=== PATIENT | male | born 1985 | race Caucasian/White ===

== ENCOUNTER 2017-02-15 02:21 | Day surgery (SDC) | payer BC, OTHER ==
[2017-02-15] MEDS ORDERED: PANTOPRAZOLE 40 MG TABLET (FP) PO ONE (02:43)
--- NOTE | 2017-02-15 02:43 | PDOC ---
[id number] No Limitations - History of Present Illness Initial Comments: 02/15/17 03:02 The patient is a 31 year old male with no significant past medical history who presents to the ED for abdominal pain 2 hours prior to arrival. Patient reports he developed pain to the right upper quadrant and epigastric region about 2 hours ago. States his pain is constant and he did not take any pain medications for his pain. Denies nausea, vomiting, or diarrhea. Patient reports his last meal was yesterday evening around 5pm. States he normally gets the same meal from the same restaurant with no difficulties. The patient denies fever, chills, cough, SOB, chest pain, and palpitations. Allergies: NKDA Social History: No alcohol, tobacco, or drug use reported. Past Surgical History: Denies PCP: None reported <Bibiana Cyr - Last Filed: 02/15/17 05:01> - General History Source: Patient <Mynor Guzman - Last Filed: 02/15/17 23:31> - General Chief Complaint: Pain Stated Complaint: ABD PAIN Time Seen by Provider: 02/15/17 02:39 Past History <Bibiana Cyr - Last Filed: 02/15/17 05:01> - Psycho/Social/Smoking Cessation Hx Suicidal Ideation: No Smoking History: Never smoked Have you smoked in the past 12 months: No Information on smoking cessation initiated: No Hx Alcohol Use: No Drug/Substance Use Hx: No <Mynor Guzman - Last Filed: 02/15/17 23:31> - Past Medical History Allergies/Adverse Reactions: Allergies Allergy/AdvReac Type Severity Reaction Status Date / Time No Known Allergies Allergy Verified 02/15/17 02:37 Home Medications: Ambulatory Orders NK [No Known Home Medication] 02/15/17 Review of Systems - Review of Systems Able to Perform ROS?: Yes Comments:: 02/15/17 03:02 CONSTITUTIONAL: Absent: fever, no chills, no fatigue EYES: Absent: visual changes ENT: Absent: ear pain, no sore throat CARDIOVASCULAR: Absent: chest pain, no palpitations RESPIRATORY: Absent: cough, no SOB GI: +pain to the right upper quadrant and epigastric region Absent: no nausea, no vomiting, no constipation, no diarrhea GENITOURINARY: Absent: dysuria, no frequency, no hematuria MUSCULOSKELETAL: Absent: back pain, no arthralgia, no myalgia SKIN: Absent: rash NEURO: Absent: headache <KlarissaBibiana - Last Filed: 02/15/17 05:01> *Physical Exam - Vital Signs Last Vital Signs Temp Pulse Resp BP Pulse Ox 98.7 F 93 H 18 123/71 98 02/15/17 02:35 02/15/17 02:35 02/15/17 02:35 02/15/17 02:35 02/15/17 02:35 - Physical Exam Comments: 02/15/17 03:02 GENERAL: Well-appearing, well-nourished. No apparent distress. HEENT: Normocephalic, atraumatic. PERRL, EOM intact. CARDIOVASCULAR: Normal S1, S2. Regular rate and rhythm. PULMONARY: Clear to auscultation bilaterally. ABDOMEN: Soft, non-distended, non-tender. EXTREMITIES: Normal ROM in all four extremities. No gross deformities. SKIN: Warm, dry. No rash NEUROLOGICAL: No focal neurological deficits. <KlarissaBibiana - Last Filed: 02/15/17 05:01> - Vital Signs Last Vital Signs Temp Pulse Resp BP Pulse Ox 98.7 F 93 H 18 123/71 98 02/15/17 02:35 02/15/17 02:35 02/15/17 02:35 02/15/17 02:35 02/15/17 02:35 <Mynor Guzman - Last Filed: 02/15/17 23:31> Heart Score/ECG Review - ECG Impressions Comment:: 02/15/17 05:01 Sinus tachycardia @105bpm Incomplete RBBB Borderline ECG <AllynpennieBibiana - Last Filed: 02/15/17 05:01> ED Treatment Course - LABORATORY CBC & Chemistry Diagram: 02/15/17 02:47 02/15/17 02:47 - RADIOLOGY Radiograph Interpretation: 02/15/17 04:37 EXAM: CT ABDOMEN AND PELVIS WITHOUT CONTRAST Reviewed by Imaging special education professional: 13 mm diameter appendix containing a 7 mm appendicolith and surrounded by fat inflammation and peritoneal thickening, consistent with acute appendicitis. No abscess, free fluid or free air. No diverticulosis colon. <KlarissaBibiana - Last Filed: 02/15/17 05:01> - LABORATORY CBC & Chemistry Diagram: 02/15/17 02:47 02/15/17 02:47 <Mynor Guzman - Last Filed: 02/15/17 23:31> Medical Decision Making - Medical Decision Making 02/15/17 23:30 Dr. Guzman: The scribe's documentation has been prepared under my direction and personally reviewed by me in its entirery. I confirm that the note above accurately reflects all work, treatment, procedures, and medical decision making performed by me. Patient found to have appendicitis on ABD/Pel Ct scan. Pt admitted to [facility] for eventual surgical consult and treatment <Mynor Guzman - Last Filed: 02/15/17 23:31> *DC/Admit/Observation/Transfer - Attestations Scribe Attestion: 02/15/17 03:02 Documentation prepared by Bibiana Cyr, acting as medical claims representative for Mynor Guzman MD/DO. <Bibiana Cyr - Last Filed: 02/15/17 05:01> - Discharge Dispostion Admit: Yes <Mynor Guzman - Last Filed: 02/15/17 23:31> Diagnosis at time of Disposition: Acute appendicitis
[2017-02-15 02:58] VITALS: BMI 25.8
[2017-02-15] MEDS ORDERED: PANTOPRAZOLE 40 MG TABLET (FP) ONE (03:01)
[2017-02-15 03:04] LABS: URINE APPEARANCE CLEAR; URINE BILIRUBIN NEGATIVE (NEGATIVE); URINE BLOOD NEGATIVE (NEGATIVE); URINE COLOR STRAW; URINE GLUCOSE (UA) NEGATIVE (NEGATIVE); URINE KETONE NEGATIVE (NEGATIVE); URINE LEUK ESTERASE NEGATIVE (NEGATIVE); URINE NITRITE NEGATIVE (NEGATIVE); URINE PROTEIN NEGATIVE (NEGATIVE); URINE UROBILINOGEN NEGATIVE E.U./dl (0.2-1.0)
[2017-02-15 03:05] LABS: BASOPHIL 0.4 % (0-2.0); EOSINOPHIL 2.4 % (0-4.5); MCH 28.2 pg (25.7-33.7); MCHC 32.8 g/dl (32.0-35.9); MEAN CELL VOLUME 85.9 fl (80-96); MEAN PLT VOLUME 9.8 fl (7.5-11.1); NEUTROPHILS 86.2 % (42.8-82.8); PLATELET COUNT 141 K/MM3 (134-434); RDW 13.9 % (11.9-15.9); WHITE BLOOD COUNT 13.8 K/mm3 (4.0-10.0)
[2017-02-15 03:30] LABS: ALBUMIN 4.3 g/dl (3.4-5.0); AMYLASE 41 U/L (25-115); ANION GAP 11 (8-16); BILIRUBIN,TOTAL 0.7 mg/dL (0.2-1.0); CALCIUM 9.3 mg/dL (8.5-10.1); CO2 29 mmol/L (21-32); COCKROFT - GAULT 109.24; CREATININE 1.1 mg/dL (0.7-1.3); GLUCOSE,RANDOM 94 mg/dL (74-106); MAGNESIUM 2.1 mg/dL (1.8-2.4); SGOT/AST 14 U/L (15-37); SGPT/ALT 17 U/L (12-78); TOT PROT 7.8 g/dl (6.4-8.2)
[2017-02-15 03:31] LABS: ALK PHOS 68 U/L (45-117)
[2017-02-15] MEDS ORDERED: LEVOFLOXACIN 500 MG IVPB 100 ML IVPB ONE ×2 (04:37→05:12)
[2017-02-15] MEDS ORDERED: METRONIDAZOLE 500 MG PREMIXED 100 ML IVPB ONE ×3 (04:40→14:23)
[2017-02-15] MEDS ORDERED: DEXTROSE 5%-0.45% SALINE 1,000 ML IV SCH ×3 (04:45→13:28)
[2017-02-15 05:15] LABS: INR 1.2 (0.82-1.09); PROTHROMBIN TIME (PATIENT) 13.2 SEC (9.98-11.88)
[2017-02-15] MEDS ORDERED: morphine CARPU-JECT 2 MG/1 ML DISP.SYRIN IVPUSH ONE (05:19)
[2017-02-15] MEDS ORDERED: METOCLOPRAMIDE HCL INJECTION 10 MG/2 ML VIAL IVPUSH ONE (05:20)
[2017-02-15] MEDS ORDERED: METOCLOPRAMIDE HCL INJECTION 10 MG/2 ML VIAL ONE (05:21)
[2017-02-15] MEDS ORDERED: morphine CARPU-JECT 4 MG/1 ML DISP.SYRIN ONE (05:21)
[2017-02-15] MEDS ORDERED: morphine CARPU-JECT 2 MG/1 ML DISP.SYRIN ONE (05:21)
--- NOTE | 2017-02-15 06:06 | HP ---
CHIEF COMPLAINT: Abdominal pain x 1 day PCP: NONE HISTORY OF PRESENT ILLNESS: 31 year old otherwise healthy male presents c/o an acute onset of generalized abdominal pain that started around 10:30 pm and progressed in intensity over the course of time . No nausea or vomiting , no diarrhea or fevers . ER course was notable for: (1) CT abdomen (2)Morphine IV (3)IVF and IVAB Recent Travel: yes PAST MEDICAL HISTORY: NONE PAST SURGICAL HISTORY: NONE Social History: Smoking:NO Alcohol:NO Drugs: NO Family History: Negative for premature CAD Allergies No Known Allergies Allergy (Verified 02/15/17 02:37) HOME MEDICATIONS: Home Medications Medication Instructions Recorded NK [No Known Home Medication] 02/15/17 REVIEW OF SYSTEMS CONSTITUTIONAL: Absent: fever, chills, diaphoresis, generalized weakness, malaise, loss of appetite, weight change HEENT: Absent: rhinorrhea, nasal congestion, throat pain, throat swelling, difficulty swallowing, mouth swelling, ear pain, eye pain, visual changes CARDIOVASCULAR: Absent: chest pain, syncope, palpitations, irregular heart rate, lightheadedness , peripheral edema RESPIRATORY: Absent: cough, shortness of breath, dyspnea with exertion, orthopnea, wheezing, stridor, hemoptysis GASTROINTESTINAL: SEE HPI GENITOURINARY: Absent: dysuria, frequency, urgency, hesitancy, hematuria, flank pain, genital pain MUSCULOSKELETAL: Absent: myalgia, arthralgia, joint swelling, back pain, neck pain SKIN: Absent: rash, itching, pallor HEMATOLOGIC/IMMUNOLOGIC: Absent: easy bleeding, easy bruising, lymphadenopathy, frequent infections ENDOCRINE: Absent: unexplained weight gain, unexplained weight loss, heat intolerance, cold intolerance NEUROLOGIC: Absent: headache, focal weakness or paresthesias, dizziness, unsteady gait, seizure, mental status changes, bladder or bowel incontinence PSYCHIATRIC: Absent: anxiety, depression, suicidal or homicidal ideation, hallucinations. PHYSICAL EXAMINATION Vital Signs - 24 hr 02/15/17 02/15/17 02:35 02:40 Temperature 98.7 F Pulse Rate 93 H Respiratory 18 Rate Blood Pressure 123/71 O2 Sat by Pulse 98 100 Oximetry (%) GENERAL: Awake, alert, and fully oriented, in no acute distress. HEAD: Normal with no signs of trauma. EYES: Pupils equal, round and reactive to light, extraocular movements intact, sclera anicteric, conjunctiva clear. No lid lag. EARS, NOSE, THROAT: Ears normal, nares patent, oropharynx clear without exudates. Moist mucous membranes. NECK: Normal range of motion, supple without lymphadenopathy, JVD, or masses. LUNGS: Breath sounds equal, clear to auscultation bilaterally. No wheezes, and no crackles. No accessory muscle use. HEART: Regular rate and rhythm, normal S1 and S2 without murmur, rub or gallop. ABDOMEN: Soft, periumbilical and RLQ tenderness, no guarding, no rebound, no masses. No hepatomegaly or splenomegaly. MUSCULOSKELETAL: Normal range of motion at all joints. No bony deformities or tenderness. No CVA tenderness. UPPER EXTREMITIES: 2+ pulses, warm, well-perfused. No cyanosis. No clubbing. No peripheral edema. LOWER EXTREMITIES: 2+ pulses, warm, well-perfused. No calf tenderness. No peripheral edema. NEUROLOGICAL: Cranial nerves II-XII intact. Normal speech. Normal gait. PSYCHIATRIC: Cooperative. Good eye contact. Appropriate mood and affect. SKIN: Warm, dry, normal turgor, no rashes or lesions noted, normal capillary refill. Laboratory Results - last 24 hr 02/15/17 02/15/17 02/15/17 02:47 02:47 02:47 WBC 13.8 H RBC 5.32 Hgb 15.0 Hct 45.7 MCV 85.9 MCHC 32.8 RDW 13.9 Plt Count 141 MPV 9.8 Neutrophils % 86.2 H Lymphocytes % 7.3 L Monocytes % 3.7 L Eosinophils % 2.4 Basophils % 0.4 INR Sodium 142 Potassium 3.9 Chloride 102 Carbon Dioxide 29 Anion Gap 11 BUN 15 Creatinine 1.1 Creat Clearance w eGFR > 60 Random Glucose 94 Calcium 9.3 Magnesium 2.1 Total Bilirubin 0.7 AST 14 L ALT 17 Alkaline Phosphatase 68 Total Protein 7.8 Albumin 4.3 Total Amylase 41 Lipase 65 L Urine Color Straw Urine Appearance Clear Urine pH 5.0 Urine Protein Negative Urine Glucose (UA) Negative Urine Ketones Negative Urine Blood Negative Urine Nitrite Negative Urine Bilirubin Negative Urine Urobilinogen Negative Ur Leukocyte Esterase Negative Blood Type Antibody Screen 02/15/17 02/15/17 04:48 04:48 WBC RBC Hgb Hct MCV MCHC RDW Plt Count MPV Neutrophils % Lymphocytes % Monocytes % Eosinophils % Basophils % INR 1.20 H Sodium Potassium Chloride Carbon Dioxide Anion Gap BUN Creatinine Creat Clearance w eGFR Random Glucose Calcium Magnesium Total Bilirubin AST ALT Alkaline Phosphatase Total Protein Albumin Total Amylase Lipase Urine Color Urine Appearance Urine pH Urine Protein Urine Glucose (UA) Urine Ketones Urine Blood Urine Nitrite Urine Bilirubin Urine Urobilinogen Ur Leukocyte Esterase Blood Type A POSITIVE Antibody Screen Negative CT abdomen - acute appendicitis ASSESSMENT/PLAN: 31 year old healthy male with acute appendicitis -NPO -IVF -IV antibiotics are given - Surgical evaluation for laparoscopic/ possibly open appendectomy - DVT ppx with scd / ambulate as tolerated Visit type - Emergency Visit Emergency Visit: Yes Care time: The patient presented to the Emergency Department on the above date and was hospitalized for further evaluation of their emergent condition. - New Patient This patient is new to me today: Yes Date on this admission: 02/15/17 - Critical Care Critical Care patient: No
[2017-02-15] MEDS ORDERED: morphine CARPU-JECT 4 MG/1 ML DISP.SYRIN IVPUSH PRN (06:14)
[2017-02-15] MEDS ORDERED: CEFTRIAXONE 1 GM in DEXTROSE 5%-WATER - 50 ML IVPB ONE (08:56)
[2017-02-15] MEDS ORDERED: CEFTRIAXONE 50 ML ONE (08:58)
[2017-02-15] MEDS ORDERED: ONDANSETRON 4 MG/2 ML VIAL IVPUSH PRN ×2 (11:43→13:28)
[2017-02-15] MEDS ORDERED: LACTATED RINGERS SOLUTION 1,000 ML IV SCH (11:45)
[2017-02-15] MEDS ORDERED: MIDAZOLAM HCL 2 MG/2 ML SINGLE DOSE VIAL ONE (11:55)
[2017-02-15] MEDS ORDERED: BUPIVACAINE HCL/PF 0.5% (5MG/ML) 10 ML VIAL ONE (11:59)
--- NOTE | 2017-02-15 12:06 | PN ---
Progress Note (short form) - Note Progress Note: surgery pt seen and examined. full consult dictated. 31m with sudden onset of rlq pain , presented to [facility] and found to have acute appendicitis. wbc 13. no fever. on exam abd is soft, localized rlq tenderness and guarding Plan- acute appendicitis. sepsis (wbc 13, shift, hr 94, suspect source of infection) agree with admission. agree with iv abx. will change levaquin to rocephin for better e.coli coverage. will plan for surgery.
[2017-02-15] MEDS ORDERED: ROCURONIUM BROMIDE 50 MG/5 ML VIAL ONE (12:12)
[2017-02-15] MEDS ORDERED: PROPOFOL 20 ML ONE (12:12)
--- NOTE | 2017-02-15 12:12 | OP ---
Operative Note - Note: Operative Date: 02/15/17 Pre-Operative Diagnosis: acute appendicitis, localized peritonitis, sepsis Operation: laparoscopic appendectomy, lavage Findings: inflamed non perforated appendix Post-Operative Diagnosis: Same as Pre-op Surgeon: Lavon Hankins Anesthesiologist/MARKETING AND COMMUNICATIONS OFFICER: Katja Jones MD Anesthesia: General Specimens Removed: appendix Estimated Blood Loss (mls): 10
[2017-02-15] MEDS ORDERED: morphine CARPU-JECT 4 MG/1 ML DISP.SYRIN IVPB PRN (12:15)
[2017-02-15] MEDS ORDERED: ONDANSETRON 4 MG/2 ML VIAL IVPB PRN (12:15)
[2017-02-15] MEDS ORDERED: ACETAMINOPHEN 325 MG TABLET (FP) PO PRN (12:15)
[2017-02-15] MEDS ORDERED: oxyCODONE HCL 5 MG TABLET PO PRN (12:15)
[2017-02-15] MEDS ORDERED: KETOROLAC TROMETHAMINE 30 MG/1 ML VIAL ONE (12:39)
[2017-02-15] MEDS ORDERED: NEOSTIGMINE METHYLSULFATE 0.5 MG/ML - 10 ML MDV ONE (12:39)
[2017-02-15] MEDS ORDERED: GLYCOPYRROLATE 0.2 MG/1 ML VIAL ONE (12:39)
--- NOTE | 2017-02-15 13:07 | PN ---
Physical Exam: SUBJECTIVE: Patient seen and examined at bedside post-operatively. No complaint of pain. Tolerated regular diet for dinner. Has been passing clots in urine. OBJECTIVE: Vital Signs Period Temp Pulse Resp BP Sys/Richard Pulse Ox Last 24 Hr 98.3 F 73-94 16-18 100-113/43-67 97-97 GENERAL: The patient is awake, alert, and fully oriented, in no acute distress. HEAD: Normal with no signs of trauma. EYES: PERRL, extraocular movements intact, sclera anicteric, conjunctiva clear. No ptosis. LUNGS: Breath sounds equal, clear to auscultation bilaterally, no wheezes, no crackles, no accessory muscle use. HEART: Regular rate and rhythm, S1, S2 without murmur, rub or gallop. ABDOMEN: Soft, diffusely tender; three surgical sites closed with surgical glue , edges well-approximated, no erythema, no exudate EXTREMITIES: 2+ pulses, warm, well-perfused, no edema. NEUROLOGICAL: Cranial nerves II through XII grossly intact. Normal speech, gait not observed. PSYCH: Normal mood, normal affect. CBCD WBC 13.8 K/mm3 (4.0-10.0) H 02/15/17 02:47 RBC 5.32 M/mm3 (4.00-5.60) 02/15/17 02:47 Hgb 15.0 GM/dL (11.7-16.9) 02/15/17 02:47 Hct 45.7 % (35.4-49) 02/15/17 02:47 MCV 85.9 fl (80-96) 02/15/17 02:47 MCHC 32.8 g/dl (32.0-35.9) 02/15/17 02:47 RDW 13.9 % (11.9-15.9) 02/15/17 02:47 Plt Count 141 K/MM3 (134-434) 02/15/17 02:47 MPV 9.8 fl (7.5-11.1) 02/15/17 02:47 CMP Sodium 142 mmol/L (136-145) 02/15/17 02:47 Potassium 3.9 mmol/L (3.5-5.1) 02/15/17 02:47 Chloride 102 mmol/L (98-107) 02/15/17 02:47 Carbon Dioxide 29 mmol/L (21-32) 02/15/17 02:47 Anion Gap 11 (8-16) 02/15/17 02:47 BUN 15 mg/dL (7-18) 02/15/17 02:47 Creatinine 1.1 mg/dL (0.7-1.3) 02/15/17 02:47 Creat Clearance w eGFR > 60 (>60) 02/15/17 02:47 Calcium 9.3 mg/dL (8.5-10.1) 02/15/17 02:47 Total Bilirubin 0.7 mg/dL (0.2-1.0) 02/15/17 02:47 AST 14 U/L (15-37) L 02/15/17 02:47 ALT 17 U/L (12-78) 02/15/17 02:47 Alkaline Phosphatase 68 U/L (45-117) 02/15/17 02:47 Total Protein 7.8 g/dl (6.4-8.2) 02/15/17 02:47 Albumin 4.3 g/dl (3.4-5.0) 02/15/17 02:47 Laboratory Results - last 24 hr 02/15/17 02/15/17 02/15/17 04:48 04:48 06:32 INR 1.20 H Blood Type A POSITIVE A POSITIVE Antibody Screen Negative Active Medications Generic Name Dose Route Start Last Admin Trade Name Freq PRN Reason Stop Dose Admin Acetaminophen 650 mg 02/15/17 12:15 Tylenol - PO Q4H PRN FEVER OR PAIN Ceftriaxone Sodium 1 gm 02/16/17 10:00 Rocephin 1gm Ivpb (Pre-Docked) IVPB DAILY [facility] Protocol Enoxaparin Sodium 40 mg 02/16/17 10:00 Lovenox - SQ DAILY DAVID Fentanyl 50 mcg 02/15/17 11:43 Sublimaze Injection - IVPUSH 02/18/17 11:44 [id number] PRN PAIN Dextrose/Sodium Chloride 1,000 mls @ 100 mls/hr 02/15/17 06:15 02/15/17 06:16 D5-1/2ns - IV 100 mls/hr ASDIR DAVID Administration Lactated Ringer's 1,000 mls @ 125 mls/hr 02/15/17 11:45 Lactated Ringers Solution IV ASDIR DAVID Metronidazole 100 mls @ 100 mls/hr 02/15/17 15:00 Flagyl 500mg Premixed Ivpb - IVPB Q6H-IV DAVID Pantoprazole Sodium 100 mls @ 200 mls/hr 02/16/17 10:00 Protonix 40mg Ivpb (Pre-Docked) IVPB DAILY DAVID Morphine Sulfate 4 mg 02/15/17 06:14 Morphine Injection - IVPUSH Q6H PRN PAIN Morphine Sulfate 4 mg 02/15/17 12:15 Morphine Injection - IVPB Q3H PRN MODERATE PAIN Ondansetron HCl 4 mg 02/15/17 11:43 Zofran Injection IVPUSH 02/15/17 17:44 Q6H PRN NAUSEA AND/OR VOMITING Ondansetron HCl 4 mg 02/15/17 12:15 Zofran Injection IVPB Q6H PRN NAUSEA Oxycodone HCl 7.5 mg 02/15/17 12:15 Roxicodone - PO Q4H PRN PAIN ASSESSMENT/PLAN 31 year-old male, [facility] and [employer], with no significant PMH, admitted for acute appendicitis. Sepsis secondary to acute appendicitis s/p lap appendectomy Localized peritonitis --tachycardic with leukocytosis on admission, met sepsis criteria --surgery today, appendix was inflamed, not perforated --hospital formulary out of metronidazole; start ertapenem (day #1) Hematuria --secondary to pereyra trauma, urine is getting iron assorter and no clots in the last void --continue IV fluids overnight F/E/N Fluids: NS @ 150mL/hr Electrolytes: replete as indicated Nutrition: regular diet DVT prophylaxis: hold chemical prophylaxis; oob, ambulation Dispo: continues to require inpatient care. Full Code. Visit type - Emergency Visit Emergency Visit: Yes Care time: The patient presented to the Emergency Department on the above date and was hospitalized for further evaluation of their emergent condition. - New Patient This patient is new to me today: Yes Date on this admission: 02/15/17 - Critical Care Critical Care patient: No
--- NOTE | 2017-02-15 14:16 | CONS ---
DATE OF CONSULTATION: 02/15/2017 REASON FOR CONSULTATION: Acute appendicitis. REQUESTING PHYSICIAN: This is an emergency room consultation requested by the emergency room physician. BRIEF HISTORY: This is a 31-year-old male without significant past medical history who presented to the [facility] Emergency Room complaining of sudden onset of right lower quadrant abdominal pain since around midnight. The pain was severe. There was no nausea, no vomiting, no diarrhea, no blood in the stool, no recent weight loss. While in the emergency room, he was noted to have right lower quadrant tenderness and elevated white blood cell count of 13,000 with a shift. He also was noted to have a heart rate of 94 at 7:30 in the morning. He went for a CT scan of his abdomen and pelvis which was consistent with acute appendicitis. He was given intravenous Levaquin and Flagyl antibiotic, and request was made for surgical evaluation. PAST MEDICAL HISTORY: Is negative. PAST SURGICAL HISTORY: Is nil. SOCIAL HISTORY: Negative for alcohol, negative for tobacco. FAMILY HISTORY: Negative for malignancy in the immediate family. ALLERGIES: He has no known drug allergies. MEDICATIONS: He takes no medications. REVIEW OF SYSTEMS: General: Denies fatigue or malaise. Cardiac: Denies chest pain or palpitations. Respiratory: Denies shortness of breath or wheeze. Gastrointestinal: As per HPI. Genitourinary: Denies dysuria. Musculoskeletal: Denies joint pain or joint swelling. Psychiatric: Denies anxiety, depression, or hearing voices. PHYSICAL EXAMINATION: General: This is a well-developed, well-nourished 31-year-old male in no distress. HEENT: His head is normocephalic. His sclerae are anicteric. Neck: Supple. Chest: Clear. Abdomen: Soft. It is nondistended. He has localized right lower quadrant tenderness with guarding. There are no obvious hernias. Extremities: No clubbing, cyanosis, or edema. LABORATORY AND IMAGING: As stated in HPI. ASSESSMENT: This is a 31-year-old male with right lower quadrant pain, right lower quadrant tenderness, guarding, leukocytosis with a shift, tachycardia, and CT showing likely acute appendicitis. At this point, his diagnosis is acute appendicitis with localized peritonitis and sepsis. The sepsis is indicated by the heart rate greater than 90, white blood cell count of 13, and a left shift with a suspected source of infection. I agree with admission. I agree with intravenous antibiotics. I will change the Levaquin to Rocephin or better E. coli coverage. This should adequately cover E. coli and other gram-negative as well as enteric-related zane. I will move in the direction of surgery. Risks and benefits of the surgery have been explained to the patient in detail as well as to his mother. These are including, but not limited to, the possibility of conversion to open, possibility of injury to viscera or bladder, possibility of infection, possibility of staple dehiscence, possibility of blood loss requiring blood transfusion, possibility of future hernia, possibility of future obstruction, plus a multitude of medical risks including, but not limited to, cardiac, neurologic, pulmonary, and vascular complications, even . Patient understands these risks and is agreeable to surgery. He has also been offered medical management of appendicitis and declines. He prefers the more definitive nature of surgery, the likely decreased length of stay the prevention of future recurrence, and the pathological evaluation of his appendix. DO CALLUM GARCIA/[id number]
[2017-02-15] MEDS ORDERED: METRONIDAZOLE 500 MG PREMIXED 100 ML IVPB SCH (15:00)
[2017-02-15] MEDS ORDERED: SODIUM CHLORIDE 1,000 ML IV SCH (17:30)
[2017-02-15] MEDS: SODIUM CHLORIDE 1,000 ML IV SCH (19:00)
[2017-02-15] MEDS ORDERED: ERTAPENEM SODIUM 1 GM/50 ML PRE-DOCKED IVPB SCH (19:30)
[2017-02-15] MEDS: ERTAPENEM SODIUM 1 GM in SODIUM CHLORIDE 50 ML IVPB SCH (22:39)
[2017-02-16] MEDS: SODIUM CHLORIDE 1,000 ML IV SCH (06:38)
[2017-02-16 08:03] LABS: ALBUMIN 3.2 g/dl (3.4-5.0); ALK PHOS 51 U/L (45-117); ANION GAP 7 (8-16); BILIRUBIN,TOTAL 0.7 mg/dL (0.2-1.0); CALCIUM 8.5 mg/dL (8.5-10.1); CO2 27 mmol/L (21-32); COCKROFT - GAULT 150.21; CREATININE 0.8 mg/dL (0.7-1.3); GLUCOSE,RANDOM 118 mg/dL (74-106); MAGNESIUM 2.3 mg/dL (1.8-2.4); SGOT/AST 13 U/L (15-37); SGPT/ALT 14 U/L (12-78); TOT PROT 5.9 g/dl (6.4-8.2)
[2017-02-16] MEDS ORDERED: cefTRIAXone 1 GM/50 ML BAG (PRE-DOCKED) IVPB SCH (10:00)
[2017-02-16] MEDS ORDERED: PANTOPRAZOLE SODIUM 100 ML IVPB SCH (10:00)
[2017-02-16] MEDS ORDERED: ENOXAPARIN NA (PORCINE) 40 MG/0.4 ML DISP.SYRIN SQ SCH (10:00)
[2017-02-16] MEDS ORDERED: PT OWN MED DRAWER 7, Y5N ONE ×2 (10:13→10:14)
[2017-02-16] MEDS: ERTAPENEM SODIUM 1 GM in SODIUM CHLORIDE 50 ML IVPB SCH (10:28)
[2017-02-16 11:49] LABS: BASOPHIL 0.1 % (0-2.0); EOSINOPHIL 0.1 % (0-4.5); MCH 29.2 pg (25.7-33.7); MCHC 33.8 g/dl (32.0-35.9); MEAN CELL VOLUME 86.4 fl (80-96); MEAN PLT VOLUME 10.5 fl (7.5-11.1); NEUTROPHILS 86.1 % (42.8-82.8); PLATELET COUNT 132 K/MM3 (134-434); RDW 13.8 % (11.9-15.9); WHITE BLOOD COUNT 8.6 K/mm3 (4.0-10.0)
--- NOTE | 2017-02-16 12:12 | OP ---
DATE OF OPERATION: 02/15/2017 PREOPERATIVE DIAGNOSIS: Acute appendicitis. POSTOPERATIVE DIAGNOSIS: Acute appendicitis. PROCEDURE: Laparoscopic appendectomy and lavage. SURGEON: Lavon Hankins DO AIR SAW OPERATOR: None. ANESTHESIA: Cheri Jones MD (general) SPECIMEN: Appendix. FINDINGS: A thickened, inflamed, nonperforated appendix. ESTIMATED BLOOD LOSS: Minimal. DRAINS: None. COMPLICATIONS: None. BRIEF HISTORY: This is a 31-year-old male who presented to [facility] Emergency Room with signs and symptoms of acute appendicitis. He presents now for surgery. He received Rocephin and Flagyl antibiotic prior to incision. DESCRIPTION OF PROCEDURE: The patient was placed in supine position. After general anesthesia was initiated, the abdomen was prepped and draped in sterile fashion and Lynn catheter was inserted. Next, a vertical incision was made infraumbilical with scalpel used to go through skin and subcutaneous tissue. The fascia was then lifted with Valeriy clamp incised vertically. The peritoneum was entered bluntly. Next , a 0 Vicryl stitch was placed across the fascial defect and used to secure the Encinas trocar. Pneumoperitoneum was then created followed by insertion of a 5-mm 30- degree laparoscope. Next, two 5-mm trocars were placed, one suprapubic with care to avoid injuring the bladder and one in the left lower quadrant lateral to the rectus muscle. At this point, attention was then turned toward the right lower quadrant, and the appendix was seen. It was thickened, inflamed, nonperforated. A window was made at the base. The LigaSure device was used to divide the mesoappendix and multiple welts. The Endo ANASTACIO Ultra purple load 45-mm stapler was then used to divide the appendix at its base with a small portion of cecum. The staple line was inspected. It was intact. There was no bleeding, no breaks, no signs of ischemia. At this point, the appendix was removed through a specimen bag. A limited lavage was done. Trocars were then removed under direct visualization, and no bleeding was seen. Next, the infraumbilical trocar site was closed with multiple interrupted 0 Vicryl sutures. The 3 skin incisions were closed with subcuticular Biosyn, and Dermabond dressing was placed. Overall, the patient tolerated the procedure well. There were no complications. Lynn catheter, which was placed at the beginning of the operation, was removed at the end. DO CALLUM GARCIA/[id number] MTDD
--- NOTE | 2017-02-16 14:04 | DS ---
Physical Exam: SUBJECTIVE: Patient seen and examined at bedside. No pain. Tolerating regular diet. Voiding freely, urine is clear, no clots. OBJECTIVE: Vital Signs Period Temp Pulse Resp BP Sys/Richard Pulse Ox Last 24 Hr 97.8 F-98.7 F 53-72 18-20 108-128/51-67 95-100 PHYSICAL EXAM GENERAL: The patient is awake, alert, and fully oriented, in no acute distress. HEAD: Normal with no signs of trauma. EYES: PERRL, extraocular movements intact, sclera anicteric, conjunctiva clear. No ptosis. LUNGS: Breath sounds equal, clear to auscultation bilaterally, no wheezes, no crackles, no accessory muscle use. HEART: Regular rate and rhythm, S1, S2 without murmur, rub or gallop. ABDOMEN: Soft, diffusely tender; three surgical sites closed with surgical glue , edges well-approximated, no erythema, no exudate EXTREMITIES: 2+ pulses, warm, well-perfused, no edema. NEUROLOGICAL: Cranial nerves II through XII grossly intact. Normal speech, gait not observed. PSYCH: Normal mood, normal affect. Laboratory Results - last 24 hr 02/16/17 02/16/17 06:00 06:00 WBC 8.6 D RBC 4.56 Hgb 13.3 D Hct 39.4 MCV 86.4 MCHC 33.8 RDW 13.8 Plt Count 132 L MPV 10.5 Neutrophils % 86.1 H Lymphocytes % 8.1 Monocytes % 5.6 Eosinophils % 0.1 D Basophils % 0.1 Sodium 141 Potassium 4.2 Chloride 107 Carbon Dioxide 27 Anion Gap 7 L BUN 13 Creatinine 0.8 D Creat Clearance w eGFR > 60 Random Glucose 118 H D Calcium 8.5 Magnesium 2.3 Total Bilirubin 0.7 AST 13 L ALT 14 Alkaline Phosphatase 51 D Total Protein 5.9 L D Albumin 3.2 L D HOSPITAL COURSE: Date of Admission:02/15/17 Date of Discharge: 02/16/17 31 year-old male, [facility] and [employer], with no significant PMH, admitted for acute appendicitis. Sepsis secondary to acute appendicitis s/p lap appendectomy Localized peritonitis --tachycardic with leukocytosis on admission, met sepsis criteria --surgery yesterday, appendix was inflamed, not perforated --started on ertapenem; discharged with prescription for augmentin x 5 days Hematuria, resolved --secondary to pereyra trauma Minutes to complete discharge: 35 Discharge Summary Reason For Visit: ACUTE APPENDICITIS Current Active Problems Acute appendicitis (Acute) Condition: Improved - Instructions Diet, Activity, Other Instructions: You should follow up with Dr. Hankins in two weeks. His contact information is enclosed. Per Dr. Hankins, you should not return to work until you see him in his office. A prescription has been sent to your pharmacy for Augmentin which is an antibiotic. Take this medication as directed and be sure to finish all the medication. Return to the emergency department for any new or worsening symptoms. Referrals: Lavon Hankins MD [Staff Physician] - 2 Weeks Disposition: HOME - Home Medications Comprehensive Discharge Medication List: Ambulatory Orders Amoxicillin/Potassium Clav [Augmentin 875-125 Tablet] 1 each PO BID #10 tablet 02/16/17 This patient is new to me today: No Emergency Visit: Yes Care time: The patient presented to the Emergency Department on the above date and was hospitalized for further evaluation of their emergent condition. Critical Care patient: No - Discharge Referral Referred to [facility] Med P.C.: No
[2017-02-16 15:12] VITALS: BP 116/64; PULSE 79; TEMP 98.4
--- NOTE | 2017-02-22 11:19 | PATH ---
Surgical Pathology Report Patient Name: CHANDRA BUENROSTRO [facility]. Rec. #: [id number] /Age/Gender: 1985 (Age: 31) / M Account: <[id number]> Location: EMERGENCY ROOM Taken: 02/15/2017 Received: 02/15/2017 Reported: 02/17/2017 Physicians: Lavon Hankins M.D. Specimen(s) Received APPENDIX Clinical History Acute appendicitis Final Diagnosis APPENDIX, APPENDECTOMY: WELL DIFFERENTIATED NEUROENDOCRINE TUMOR, LOW GRADE (CARCINOID TUMOR). TUMOR SIZE: 0.8 CM. MITOTIC RATE: 0-1/10 HPF Ki-67 PROLIFERATION INDEX: ~2% TUMOR LOCATION: TIP OF THE APPENDIX. SURGICAL RESECTION MARGINS: PROXIMAL RESECTION MARGIN IS WIDELY NEGATIVE FOR TUMOR , MESENTERIC RESECTION MARGIN IS 0.5 MM AWAY FROM TUMOR. ACUTE APPENDICITIS AND PERIAPPENDICITIS. PATHOLOGIC STAGING: PRIMARY TUMOR: pT1a LYMPH NODES: pNX Comment: The sections show a proliferation of round cells with granular nuclear chromatin arranged in nests and cords. The mitotic rate is 0-1/10HPF. No necrosis is present. The tumor is located in the tip of the appendix, infiltration into the subserosal adipose tissue and mesoappendix. Immunohistochemical stains performed at [place], [place] ([id number]) on block #1 frozen following: The tumor cells are weakly positive for Ae1/Ae3 keratin, positive for synaptophysin and chromogranin immunostains; Ki67 proliferation index is approximately 2% of the tumor cells (with positive background lymphocytes). Comments Diagnostic case summary for appendix neuroendocrine tumor: Specimen: _x_ Appendix Procedure: _x_ Appendectomy Specimen Integrity: _x_ Intact Tumor Site: _x_ Distal half of appendix (tip of the appendix) Tumor Size: Greatest dimension: 0.8 cm Histologic Type and Grade: _x_ Well-differentiated neuroendocrine tumor; G1: Low grade (carcinoid) Mitotic Rate: Specify: 0-1/10 high-power beach (HPF) Microscopic Tumor Extension _x_ Tumor invades subserosal tissue without involvement of visceral peritoneum _x_ Tumor extends into mesoappendix Margins Proximal Margin _x_ Uninvolved by tumor Mesenteric (Mesoappendiceal) Margin _x_ Uninvolved by tumor, but close (<1 mm) Distance of tumor from closest mesenteric margin: 0.5 mm If all margins uninvolved by neuroendocrine tumor: Distance of tumor from closest margin: 0.5 mm Specify margin: mesenteric Lymph-Vascular Invasion: _x_ Not identified Pathologic Staging (pTNM) Primary Tumor (pT): pT1a (Tumor 1 cm or less in greatest dimension) Regional Lymph Nodes (pN): pNX (Cannot be assessed) _x_ No nodes submitted or found Distant Metastasis (pM): Not applicable Ancillary Studies: _x_ Ki-67 labeling index _x_ =2% Additional Pathologic Findings: _x_ Acute appendicitis Electronically Signed Niko Tate M.D. Gross Description Received in formalin, labeled "appendix" is a 6 cm in length vermiform appendix with a stapled margin of resection and moderate attached fat. The serosa is hyde-red with focal attached exudate. Sectioning reveals a focally dilated lumen containing hyde pus. The wall of the appendix averages 0.2 cm in thickness. Mold Preparer sections are submitted in one cassette. Additional sections are submitted as follows: 2-resection margin of appendix; [id number] submitted remainder of appendix. 02/15/201702/15/2017
== END 2017-02-16 15:18 | disposition home or self-care (01) ==
LOC: JER 02:21 → JERBED 04:32 → SUATTDRO 04:32 → UNDOADMIN 04:32 → JASUSAT 04:32 → JERBED 06:08 → UNDOADMIN 06:08 → JERBED 14:56 → J7W 14:56 → JASUSAT 02-16 15:18
PROVIDERS: ATTEND Nurse Practitioner Acute Care
PROC: 0DTJ4ZZ Resection of Appendix, Percutaneous Endoscopic Approach (ICD-10-PCS; principal; 2017-02-15 11:45)
DX: K35.80 Unspecified acute appendicitis (principal)
CPT/HCPCS: 36415; 74176-TC; 80053; 81003; 82150; 83690; 83735; 85025; 85610; 86850; 86900; 86901; 87040; 88304-TC; 94760; 99284-25